=== PATIENT | female | born 1955 | race Caucasian/White ===

== ENCOUNTER 2018-09-06 08:39 | Day surgery (SDC) | payer OTHER ==
[~2018-09-06] VITALS: Ht 144.8 cm; Wt 72.2 kg
[2018-09-06] VITALS (24 sets, daily range): BP systolic 112–151; BP diastolic 61–74; PULSE 76–90; RESP 12–20; Ht 144.8 cm; Wt 72.2 kg
[~2018-09-06 08:39] MED LIST: CEFAZOLIN 2 GM/50 ML (PMX) 50 ML IVPB ONE; EPHEDrine SULFATE 50 MG/5 ML SYG ONE; SEVOFLURANE 15 MIN ONE; SOD CHLORIDE 0.9% 1,000 ML IV SCH
[2018-09-06] MEDS ORDERED: METF-849 PO (09:26)
[2018-09-06] MEDS ORDERED: CHOL100062 PO (09:28)
[2018-09-06] MEDS ORDERED: MULTI PO (09:28)
[2018-09-06] MEDS ORDERED: LEVO75TA5 PO (09:28)
--- NOTE | 2018-09-06 11:22 | PREAC ---
Date/Time of Note Date/Time of Note DATE: 09/06/18 TIME: 11:21 Anesthesia Eval and Record Evaluation Time Pre-Procedure Interview DATE: 09/06/18 TIME: 11:21 Age 62 Sex female NPO: 8 hrs Preoperative diagnosis Umbilical Hernia Planned procedure Laparoscopic Umbilical Hernia Repair Past Medical History Past Medical History: Includes Endo: Diabetes, Hypothyroid GI: Obesity Surgery & Anesthesia Issues No known issue Meds Anticoagulation: No Beta Raf within 24 hr: No Reason Beta Raf not given: Pt. not on B-Raf Reported Medications Cholecalciferol* (Vitamin D3*) 1,000 Unit Tablet, 5000 UNIT PO DAILY, TAB 09/06/18 Multivitamins* (Theragran*) 1 Tab Tab, 1 TAB PO DAILY, TAB 09/06/18 Levothyroxine Sodium* (Levothyroxine Sodium*) 75 Mcg Tablet, 75 MCG PO BEFORE BREAKFAST, #30 TAB 09/06/18 Metformin* (Glucophage*) 500 Mg Tab, 500 MG PO BID WITH MEALS, #30 TAB 09/06/18 Current Medications Sodium Chloride 1,000 ml @ 75 mls/hr [id number] IV Last administered on 09/06/18at 08:00; Admin Dose 75 MLS/HR; Start 09/06/18 at 08:00; Stop 09/06/18 at 21:19 Meds reviewed: Yes Allergies Coded Allergies: azithromycin (Verified Allergy, Severe, 09/06/18) fish oil (Verified Allergy, Severe, 09/06/18) Allergies Reviewed: Yes Labs/Studies Labs Reviewed: Reviewed by anesthesiologist test: N/A Studies: ECG (n/a), CXR (n/a) Pre-procedure Exam Last vitals Vital Signs Date Temp Pulse Resp B/P (MAP) Pulse Ox O2 O2 Flow FiO2 Time Delivery Rate 09/06/18 98.6 76 16 151/72 94 10:20 (98) Airway: Adequate mouth opening, Adequate thyromental dist Mallampati: Mallampati II Teeth: Normal Lung: Normal Heart: Normal ASA Physical Status ASA physical status: 2 Emergency: None Planned Anesthetic General/MAC: ETT Nerve block: TAP (bilateral) Planned Pain Management Single shot nerve block, Parenteral pain med Pre-operative Attestations Prior to commencing anesthesia and surgery, the patient was re-evaluated, there was verification of: *The patient's identity *The results of appropriate recent lab work and preoperative vital signs *The above evaluation not changing prior to induction *Anesthetic plan, risk benefits, alternative and complications discussed with patient/family; questions answered; patient/family understands, accepts and wishes to proceed. FABRIZIO GOLDSMITH MD Sep 06, 2018 11:22
[2018-09-06] MEDS ORDERED: ROCURONIUM 50 MG INJ ONE (11:25)
[2018-09-06] MEDS ORDERED: MIDAZOLAM 1 MG/ML 2 ML INJ ONE (11:25)
[2018-09-06] MEDS ORDERED: ROPIVACAINE 0.5 % 30 ML VIAL ONE (11:25)
[2018-09-06] MEDS ORDERED: FENTAnyl 50 MCG/ML VIAL ONE (11:25)
[2018-09-06] MEDS ORDERED: CEFAZOLIN 1 GM INJ ONE (11:25)
[2018-09-06] MEDS ORDERED: PROPOFOL 20 ML ONE (11:25)
[2018-09-06] MEDS ORDERED: LIDOCAINE 1%/EPI (1:100,000) (MDV) 20 ML ONE (11:33)
[2018-09-06] MEDS ORDERED: BUPIVACAINE 0.25% (MPF) 30 ML INJ ONE (11:33)
[2018-09-06] MEDS ORDERED: POLYMYXIN/BACITRACIN 1L IRRIG IRR ONE (12:16)
[2018-09-06] MEDS ORDERED: SCOPOLAMINE 1.5 MG PATCH ONE (12:30)
[2018-09-06] MEDS ORDERED: METOCLOPRAMIDE 10 MG INJ ONE (12:30)
[2018-09-06] MEDS ORDERED: KETOROLAC 30 MG INJ ONE (12:30)
[2018-09-06] MEDS ORDERED: ONDANSETRON 4 MG INJ ONE (12:30)
[2018-09-06] MEDS ORDERED: DEXAMETHASONE 4 MG/ML 5 ML INJ ONE (12:30)
[2018-09-06] MEDS ORDERED: SUGAMMADEX SODIUM 200 MG/2 ML VIAL IV ONE (12:42)
--- NOTE | 2018-09-06 14:02 | PAC ---
Date/Time of Note Date/Time of Note DATE: 09/06/18 TIME: 14:01 Post-Anesthesia Notes Post-Anesthesia Note Last documented vital signs Vital Signs Date Temp Pulse Resp B/P (MAP) Pulse Ox O2 O2 Flow FiO2 Time Delivery Rate 09/06/18 98.6 76 16 151/72 94 14:20 (98) Activity: WNL Respiratory function: WNL Cardiovascular function: WNL Mental status: Baseline Pain reasonably controlled: Yes Hydration appropriate: Yes Nausea/Vomiting absent: Yes FABRIZIO GOLDSMITH MD Sep 06, 2018 14:02
--- NOTE | 2018-09-06 14:14 | OPR ---
Date/Time of Note Date/Time of Note DATE: 09/06/18 TIME: 14:02 Operative Report Procedure Date: Sep 06, 2018 Preoperative Diagnosis Large umbilical hernia incarcerated without obstruction or gangrene, Postoperative Diagnosis Large umbilical hernia with excess skin Operation/Procedure Performed Laparoscopic converted to open umbilical hernia repair with mesh Excision of excess skin Creation of new umbilicus Surgeon Savannah Torres MD FACS [employer] Dr Caro Anesthesia Type: general Estimated Blood Loss: minimal Transfusion none Specimen Hernia sac and excess skin Grafts/Implants none Complications none Pt Condition Post Procedure: stable Disposition: PACU Indications This patient has a very large umbilical hernia with skin changes but that requires surgical repair to prevent any further increases in size pain and discomfort. Risks and benefits were explained and informed consent was obtained. During the procedure this hernia that was very much incarcerated was noted to have a large amount of omental fat within it that was eventually reduced out however the hernia sac was adherent to the patient's much thinned out skin and therefore excision of skin was also required. Once the hernia sac was removed it created a defect within the skin and therefore the procedure was converted to open. Procedure Description Patient was laid supine on the OR table and time out was called. Abd prepped and draped in sterile manner. Abx given. A 5 mm incision was made at Zavala's point at LUQ and Veress needle entered until three clicks heart with reassuring saline test. Abd insufflated to 15 mm Hg. Abdomen entered with Optiview trocar under visualization. Area of entry inspected and no injury was noted. A second port was placed at LLQ (15 mm) after care was taken to avoid the inferior epigastric vessels. The ventral hernia was noted and a significant amount of omental fat was noted to be incarcerated within the hernia defect that was about 2 cm wide. The LigaSure device was used to create a slit within the hernia defect and thereafter the omental fat was reduced out of it and using the LigaSure device was transected free of its attachments to the fascia of the peritoneum. The hernia sac was rather large and it was also excised along with the LigaSure when the hernia was reduced and it was then placed into an Endo Catch bag and retrieved. When the hernia sac was removed it was noted that the skin had been adherent to it and therefore some segments of skin had to be removed as well. This created the defect within the skin of the umbilicus which made our pneumoperitoneum evacuated. The procedure was therefore converted to open. The hernia sac had already been placed into a Endo Catch bag and retrieved and now at the umbilicus a defect about 3 cm wide and the skin and fascia was noted. Interrupted 0 Vicryl sutures were used to reapproximate the fascia closing the hernia defect. The fascia in this area was noted to be very thinned out secondary to the hernia. It was determined that mesh would be required. Once the fascial defect was closed I noted a significant amount of excess skin that had been previously adhered to the hernia defect and the skin appears to have some chronic inflammation I was concerned that it would pose an infectious risk just above where we will eventually layer mesh therefore the patient required removal of excess skin. Approximately 10 x 2 cm of excess skin was removed with the use of the electrocautery. Afterwards the skin edges were reapproximated in a manner to recreate an umbilicus. Although an umbilicus like closure was carried out other parts of the defect were not amenable to such cosmetic outcome and therefore multiple layers of 3-0 chromic skin and subcutaneous tissues were closed reapproximating the wound as best as possible. Afterwards pneumoperitoneum was again reestablished and the camera was inserted back into the abdomen. An Echo 2 Ventralight mesh measuring 15 cm in diameter was inserted through the 15 mm port and then tacked up against the fascia using two layers of Securestrap tacks one centimeter apart. The Echo unfolding component was grasped and removed through the 12 mm port. The abdomen was inspected and noted to be hemostatic. One additional 5 mm port was placed in between the camera and the 15 mm port in the left upper quadrant and a fourth port was inserted this also 5 mm at the right upper quadrant. Using these additional ports dissection and visualization of the mesh circumferentially was available to us and we were able to confirm good circumferential apposition of the mesh against the abdominal wall. The Cj-Close fascial closure device was then used to close the fascia using interrupted #1 Vicryl suture. All instrument, sponge, and needle counts were correct at the end of the procedure x 2. The sites were then closed using 4-0 Monocryl subcuticular sutures. Wet dry dressings were applied and the wound was covered with Dermabond dressing. Patient was then discontinued from anesthesia and disposition [facility]SAVANNAH Sep 06, 2018 14:14
[2018-09-06] MEDS ORDERED: HYDROmorphONE 1 MG/ML SYG IV STA (14:32)
[2018-09-06] MEDS ORDERED: MEPERIDINE 25 MG INJ IV PRN (15:00)
[2018-09-06] MEDS ORDERED: ACETAMINOPHEN 1000MG/100ML IV 100 ML IVPB ONE ×2 (15:00)
[2018-09-06] MEDS ORDERED: FENTAnyl 50 MCG/ML VIAL IV PRN ×2 (15:00)
[2018-09-06] MEDS ORDERED: EPHEDrine SULFATE 50 MG/5 ML SYG IV PRN (15:00)
[2018-09-06] MEDS ORDERED: ONDANSETRON 4 MG INJ IV PRN (15:00)
[2018-09-06] MEDS ORDERED: hydrALAzine 20 MG INJ IV PRN (15:00)
[2018-09-06] MEDS ORDERED: HYDROmorphONE 1 MG/5 ML IV SYRINGE IV PRN ×2 (15:00)
[2018-09-06] MEDS ORDERED: DIPHENHYDRAMINE 50 MG INJ IV PRN (15:00)
[2018-09-06] MEDS ORDERED: LABETALOL HCL 20MG INJ IV PRN (15:00)
[2018-09-06] MEDS ORDERED: OXYCODONE/ACETAMINOPHEN (5/325) TAB PO PRN (15:00)
[2018-09-06] MEDS ORDERED: METOCLOPRAMIDE 10 MG INJ IV PRN (15:00)
== END 2018-09-06 18:09 | disposition home or self-care (01) ==
LOC: SDS 08:39
PROVIDERS: ATTEND Surgery Surgical Critical Care
DX: K42.9 Umbilical hernia without obstruction or gangrene (principal); E11.9 Type 2 diabetes mellitus without complications; E03.9 Hypothyroidism, unspecified; E66.9 Obesity, unspecified; Z68.34 Body mass index [BMI] 34.0-34.9, adult
CPT/HCPCS: 49653; 82962; J0131; J0690; J1100; J1170; J1885; J2250; J2405; J2765; J2795; J3010; Z7610; 88300; 88305